=== PATIENT | female | born 1995 | race African-American/Black ===

== ENCOUNTER 2017-02-03 06:38 | Emergency (ER) | payer SELFPAY | END 2017-02-03 09:37 | disposition home or self-care (01) | LOC: ERS 06:38 | DX: R21 Rash and other nonspecific skin eruption (principal); J45.909 Unspecified asthma, uncomplicated | CPT/HCPCS: 99282 ==

== ENCOUNTER 2017-11-13 13:54 | Emergency (ER) | payer SELFPAY | END 2017-11-13 15:30 | disposition home or self-care (01) | LOC: ERS 13:54 | DX: R21 Rash and other nonspecific skin eruption (principal); J45.909 Unspecified asthma, uncomplicated | CPT/HCPCS: 99282 ==

== ENCOUNTER 2017-12-28 04:24 | Emergency (ER) | payer SELFPAY ==
[2017-12-28] MEDS ORDERED: HYDROcodone/Acetaminophen 5/325 mg Tablet ONE (05:17)
[2017-12-28] MEDS ORDERED: Lidocaine 1% PF 5 ML VIAL ONE (05:21)
--- NOTE | 2017-12-28 08:42 | RAD ---
RIGHT HAND 3 VIEWS: Date: 12/28/17 HISTORY: Slammed hand in door. Laceration. FINDINGS: There is bandage material overlying the fifth digit. Limited evaluation for foreign body and fine bon y detail. No fracture. No cortical irregularity. No periosteal reaction. IMPRESSION: No post-traumatic change. POS: [facility]
== END 2017-12-28 06:24 | disposition home or self-care (01) ==
LOC: ERS 04:24
DX: S61.216A Laceration without foreign body of right little finger without damage to nail, initial encounter (principal); J45.909 Unspecified asthma, uncomplicated; W23.0XXA Caught, crushed, jammed, or pinched between moving objects, initial encounter
CPT/HCPCS: 12001; J2001

== ENCOUNTER 2017-12-28 14:50 | Emergency (ER) | payer SELFPAY ==
[2017-12-28] MEDS ORDERED: Bacitracin Zinc 1 Packet ONE (15:20)
== END 2017-12-28 15:25 | disposition home or self-care (01) ==
LOC: ERS 14:50
DX: S61.216A Laceration without foreign body of right little finger without damage to nail, initial encounter (principal); J45.909 Unspecified asthma, uncomplicated; W45.8XXA Other foreign body or object entering through skin, initial encounter
CPT/HCPCS: 99283

== ENCOUNTER 2018-01-08 12:57 | Day surgery (SDC) | payer SELFPAY ==
[2018-01-08] MEDS ORDERED: Lidocaine 1% PF 5 ML VIAL ONE (13:14)
[2018-01-08] MEDS ORDERED: PROPOFOL 200 MG/20 ML VIAL ONE (13:14)
[2018-01-08] MEDS ORDERED: Lidocaine 1% w/Epinephrine 1:100K 30 ML VIAL ONE (15:48)
[2018-01-08] MEDS ORDERED: Sodium Bicarbonate 2.5 MEQ/5 ML VIAL ONE (15:48)
[2018-01-08] MEDS ORDERED: Bupivacaine 0.25% HCL 30 ML VIAL ONE (15:53)
[2018-01-08] MEDS ORDERED: Bupivacaine PF 0.5% 30 ML VIAL ONE (15:53)
[2018-01-08] MEDS ORDERED: Midazolam HCl 2 mg/2 ml Vial ONE (16:03)
[2018-01-08] MEDS ORDERED: Fentanyl 100 MCG/2 ML VIAL ONE ×3 (16:03→17:45)
[2018-01-08] MEDS ORDERED: CEFAZOLIN/Water 2 GM/20 ML SYRINGE ONE (16:13)
[2018-01-08] MEDS ORDERED: Meperidine HCl/PF 25 MG/ML VIAL ONE (18:46)
--- NOTE | 2018-01-09 10:05 | OP ---
DATE OF PROCEDURE: 01/08/2018 PREOPERATIVE DIAGNOSES: Right small finger zone 2 flexor tendon laceration involving both the FDP an d FDS tendons and zone 2 ulnar digital nerve laceration. POSTOPERATIVE DIAGNOSES: Right small finger zone 2 flexor tendon laceration involving both the FDP a nd FDS tendons and zone 2 ulnar digital nerve laceration. PROCEDURE: Primary repair of FDP zone 2 tendon laceration right small finger and primary repair of u lnar digital nerve, zone 2 injury right small finger and utilization of a protective nerve conduit an d tenotomy of lacerated zone 2 FDS tendon. SURGEON: Dr. Josep Frances ANESTHESIA: Local and general. TOURNIQUET TIME: None used. FINDINGS: 100% lacerated FDS and FDP tendons with retraction back towards the A2 and A1 pulleys and 100% lacerated ulnar digital nerve with significant scar formation around the proximal and distal end s. All of these injuries appeared to be in zone 2 right small finger. IMPLANTS: 2 mm nerve conduit. CONDITION: Stable. INDICATIONS: The patient presented to my office for the first time today. Earlier today, she had colon ffered a laceration that is near 2 weeks old and was seen at [place]. She was tr eated at that time with an x-ray. The wound was washed out and the skin incision was primary repair. The patient stated that she was told that she needed surgery; however, for unknown reasons was unab le to follow up with anyone over at [place], therefore she was seen by me for the first time in [facility] on 01/08/2018. At that time clinically, she had a well-approximated laceration of the volar asp ect of the right small finger. There were no clinical signs of infection; however, she was numb over the ulnar aspect of the small finger and FDP and FDS tendon function of the right small finger were absent. She also had a healing laceration overlying the volar aspect of the proximal phalanx of the ring finger. She also noted some limited flexion at the DIP joint of the right ring finger. However , she had full flexion at the PIP joint of the right ring finger. I was able to review x-rays that w ere taken on the day of her injury. There were no fractures or foreign bodies. I recommended immedi ate attempt to at least repair the tendons to the right small finger and also the nerve to the right small finger. I did not offer any guarantees. I informed her that there is a possibility she may re quire tendon reconstruction which may involve placing a silicone laverne in the finger and then bringing her back for surgery about 3 months later for a tendon reconstruction using one of the tendons in her forearm. I explained all of the risks and goals associated with today's procedure. The goal would be to help improve function at the very least of the right small finger tendons and nerve injuries an d the risks involved with the procedure include, but are not limited to possible failure of the repai r, ongoing numbness and tingling in the finger despite repair of the nerve, need for further surgical intervention which may entail removal of scar tissue from around the tendon repair such as a flexor tenolysis, infection, further injury to nerves, tendons, blood vessels. For the first time really in clinic she did not complain of any limitation involving the right ring f karen, but in the holding area it was brought to my attention that it is difficult to flex the right ring finger DIP joint. I was able to examine this further. I offered to explore the laceration of t he right ring finger at the same time and potentially repair of the FDP tendon to the right ring fing er if there is an injury of either the FDS or FDP tendons. I informed her that there is a possibilit y by repairing the FDP tendon this far out from injury, it could affect the functioning FDS tendon to the right ring finger. Therefore, she did not want me to surgically repair anything in the right ri ng finger, did not want any surgical treatment of the right ring finger and only wanted surgery done on her right small finger. I was able to prep the right small finger then while the patient was awaiting surgery in the holding area. All risks and goals again discussed by me with the patient. Timeout was performed. Tumescent local anesthetic using 1% lidocaine with epinephrine 1:10,000 parts was then administered into the r ight small finger. She tolerated the injection well. Good anesthetic was achieved, 20-30 minutes wa s allowed to elapse in order to allow for appropriate epinephrine effect. She was then brought back to the operating room. Apparently, the patient had some anxiety and so therefore I discussed undergo ing general anesthesia with the Anesthesia team. Therefore, the patient was placed supine on the ope rating room table. Another timeout was performed. The right upper extremity tourniquet was applied in case needed for back up and the patient underwent a general anesthetic by the Anesthesia team. Ri karley upper extremity was prepped and draped under sterilely septic conditions after the Prolene suture s were removed from her wound, discorded away from the field. Second timeout was performed. I was a ble to open the laceration bluntly overlying the volar aspect of the right small finger using tenotom y scissors and extended distally and proximally in Marvin's fashion using a 15 blade scalpel, the sk in flaps were elevated bluntly using tenotomy scissors and then retracted using a 4-0 nylon stay sutu res. Care was taken to avoid any injury to the underlying neurovascular digital bundles and to the t endons. I was able to appreciate hematoma within the flexor tendon sheath and there was a rent withi n the flexor tendon sheath in between the A4 and A2 pulleys. I was able to localize the transected e nds of both the FDS and FDP tendons. There was some retraction of the proximal ends of those tendons close to in between the interval of the A2 and A1 bruce and they were delivered out to the A1 pulle y after a small incision was made in this area. The tendon lacerations appeared to be fairly clean. There was some mild debridement that was needed in order to get the fresh tendon ends. I was able t o locate the distal end of the FDP tendon and this was located distally. I was able to use a pediatr ic feeding tube to preserve most of the tendon sheath. I did have to incise the distal edge of the A 4 bruce in order to allow the tendon to pass smoothly. The proximal end of the FDP tendon was then primarily repaired to the distal end using a 4 strand core suture technique, a modified Land techn ique was used using a 3-0 FiberWire suture followed by an inverted horizontal mattress suture and the n bulk was reduced using a running epitendinous 6-0 nylon suture. Minimal bulk was appreciated aroun d the primary repair. I then performed a FDS tenotomy as the laceration of the FDS tendons was imme diately at their insertion at the middle phalanx. Therefore, in order to reduce the bulk around the stablely repaired FDP tendon and limit any excursion issues, I decided to perform an FDS tenotomy. T herefore, it was transected as proximally as possible and allowed to retract into the palm and forear m, potentially. My attention was then directed towards the ulnar digital nerve repair. The radial n eurovascular digital bundle was intact and when I looked at the ulnar neurovascular digital bundle, t he ulnar artery was transected and a thrombosed, the ulnar digital nerve was 100% lacerated with surr ounding scar tissue. It was dissected free from the scar tissue and then the distal and proximal end s were cut until fascicles were seen. The entire case was done under 3.5 loupe magnification so I co uld appreciate the fascicles and the nerve was primarily repaired using simple interrupted 8-0 nylon suture. I was then able to put a protective nerve conduit around the repair, 2 mm conduit fit nicely and this was secured loosely with a simple interrupted 8-0 nylon suture. The wound was irrigated. The stay sutures were removed and the skin flaps were primarily repaired. The entire surgery was don e off the tourniquet. The finger held good refill throughout the entirety of the case and the skin i ncision was primarily repaired using 4-0 nylon sutures. The patient was extubated, but prior to extu bation. I dressed the wound using Xeroform and a bulky dressing. She was placed into a dorsal block ing splint made from plaster which was secured using soft roll and Genaro wrap. The patient was then se nt to the recovery area in stable condition and tolerated the procedure well without complication. I did emphasize the importance preoperatively with the patient, both in the clinic and while she was waiting surgery in the holding area, the importance of following a strict postoperative hand therapy program in order to maximize tendon excursion and function in the repaired right small finger, so she was agreeable to this preoperatively. Therefore, she will be seen by the hand occupational therapis t around 3-4 days postoperatively and then seen back in the hand clinic around postoperative day 8-10 and we will plan on removing sutures and take a look at the wound doing a wound check at that time. She was discharged home on pain medication as well.
== END 2018-01-08 20:52 | disposition home or self-care (01) ==
LOC: SDC 12:57
PROVIDERS: ATTEND Surgery Surgery of the Hand
PROC: 0LQ70ZZ Repair Right Hand Tendon, Open Approach (ICD-10-PCS; principal; 2018-01-08)
PROC: 01U40JZ Supplement Ulnar Nerve with Synthetic Substitute, Open Approach (ICD-10-PCS; principal; 2018-01-08)
DX: S66.126A Laceration of flexor muscle, fascia and tendon of right little finger at wrist and hand level, initial encounter (principal); S64.01XA Injury of ulnar nerve at wrist and hand level of right arm, initial encounter
CPT/HCPCS: 96374; C9352; J2001; J2175; J2250; J3010; S0020

== ENCOUNTER 2018-10-24 14:50 | Emergency (ER) | payer OTHER, SELFPAY ==
[2018-10-24 15:55] LABS: #Monocytes 0.6 thou/uL (0.11-0.59); #Neutrophils 6.3 thou/uL (1.40-6.50); %Basophils 0.2 % (0.0-1.0); %Eosinophils 0.6 % (0.0-10.0); %Lymphocytes 12.9 % (21.0-51.0); %Monocytes 7.2 % (0.0-10.0); %Neutrophils 79.2 % (42.0-75.0); Hemoglobin 11.9 g/dL (12.0-16.0); Mean Corpuscular HGB CONC 32.8 g/dL (32.0-36.0); Mean Corpuscular Hemoglobin 31.4 pg (27.0-31.0); Mean Corpuscular Volume 95.6 fL (78.0-98.0); Mean Platelet Volume 6.6 fL (7.4-10.4); Platelet Count 174 thou/uL (130-400); Red Blood Cell (RBC) Count 3.79 mill/uL (4.20-5.40); White Blood Cell (WBC) Count 7.9 thou/uL (4.8-10.8)
[2018-10-24 16:07] LABS: BHCG - Serum Negative (NEGATIVE); Pregs Control Background? CLEAR/WHITE (CLR/WHITE); Pregs Control Bar Appear? YES (CONTROL BAR)
[2018-10-24 16:16] LABS: ALT (SGPT) 10 U/L (8-55); AST (SGOT) 11 U/L (5-34); Albumin 3.2 g/dL (3.5-5.0); Alkaline Phosphatase 52 U/L (40-150); Anion Gap 8 mmol/L (10-20); BUN (Urea Nitrogen) 9 mg/dL (7.0-18.7); Bilirubin, Total 0.3 mg/dL (0.2-1.2); Calc. Creatinine Clearance 0 mL/min (70-130); Calcium 7.9 mg/dL (7.8-10.44); Carbon Dioxide 26 mmol/L (22-29); Chloride 109 mmol/L (98-107); Estimated GFR-MDRD Greater than 90; Globulin 1.6 g/dL (2.4-3.5); Potassium 3.8 mmol/L (3.5-5.1); Protein, Total 4.8 g/dL (6.0-8.3); Sodium 139 mmol/L (136-145)
[2018-10-24 16:37] LABS: Critical Call Chemistry TNA 1633; Glucose 58 mg/dL (70-105)
[2018-10-24 17:16] LABS: Bilirubin Negative (Negative); Blood, Urine Negative (Negative); Clarity Clear (Clear); Glucose, Urine (Dipstick) Normal (Negative); Leukocyte Negative Leu/uL (Negative); Nitrite Negative (Negative); Protein, Urine (Dipstick) Negative (Neg-Trace); Urobilinogen Normal mg/dL (Less than 2)
== END 2018-10-24 17:42 | disposition home or self-care (01) ==
LOC: ERS 14:50
DX: E16.2 Hypoglycemia, unspecified (principal); R55 Syncope and collapse; L03.019 Cellulitis of unspecified finger
CPT/HCPCS: 80053; 81003; 84484; 84703; 85025; 93005